=== PATIENT | male | born 1955 | race American Indian/Alaskan Native ===

== ENCOUNTER 2018-07-19 10:24 | Emergency (ER) | payer OTHER ==
[2018-07-19 10:51] VITALS: BP 136/80
[2018-07-19] MEDS ORDERED: IBUPROFEN PO ONE (13:29)
[2018-07-19] MEDS ORDERED: ULTRAM PO ONE (13:29)
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
== END 2018-07-19 13:52 | disposition home or self-care (01) ==
LOC: ED 10:24
DX: M54.2 Cervicalgia (principal); M79.651 Pain in right thigh; R07.89 Other chest pain; I10 Essential (primary) hypertension; Z87.891 Personal history of nicotine dependence; Z88.6 Allergy status to analgesic agent
CPT/HCPCS: 99282